=== PATIENT | male | born 1995 | race Two or more races ===

== ENCOUNTER 2021-04-04 08:22 | Emergency (ER) | payer MEDICAID ==
[~2021-04-04] VITALS: Ht 182.9 cm; Wt 79.7 kg
[2021-04-04 08:32] VITALS: BP 124/75
--- NOTE | 2021-04-04 08:47 | NUR ---
PT TO ROOM FROM TRIAGE, PT CHANGED INTO GOWN. NADN/VSS. FRIEND AT BS. CALL LIGHT WITHIN REACH
--- NOTE | 2021-04-04 09:14 | NUR ---
PA AT BS
[2021-04-04] MEDS ORDERED: CEFTRIAXONE 1,000 MG IM ONE (09:30)
[2021-04-04] MEDS ORDERED: AZITHROMYCIN 500 MG TABLET PO ONE (09:30)
[2021-04-04] MEDS ORDERED: CEFTRIAXONE 1,000 MG ONE (09:31)
[2021-04-04] MEDS ORDERED: AZITHROMYCIN 250 MG TABLET ONE (09:31)
--- NOTE | 2021-04-04 09:44 | NUR ---
PT AMBULATORY TO BR WITH UPRIGHT STEADY GAIT
[2021-04-04 09:54] LABS: MICROSCOPIC NOT IND
--- NOTE | 2021-04-04 10:18 | NUR ---
Patient given discharge instructions and they have confirmed that they understand the instructions. Patient ambulatory with steady gait.
== END 2021-04-04 10:19 | disposition home or self-care (01) ==
LOC: ED 10:07
DX: J02.8 Acute pharyngitis due to other specified organisms (principal); B97.89 Other viral agents as the cause of diseases classified elsewhere; F17.210 Nicotine dependence, cigarettes, uncomplicated
CPT/HCPCS: 36415; 81003; 86592; 87081; 87491; 87591; 87880; 96372; 99283; J0696